=== PATIENT | female | born 1970 | race Caucasian/White ===

== ENCOUNTER 2016-12-29 12:42 | Emergency (ER) | payer OTHER ==
[~2016-12-29] VITALS: Ht 160 cm; Wt 90.0 kg
[~2016-12-29 12:42] MED LIST: ATEN1TAB73 PO; CYAN1000P IM; FOLI1TAB PO; METH500T3 PO; NAPR550 PO; ROSU10 PO; Z.0.BCPILL PO
[2016-12-29 12:44] VITALS: BP 168/90; PULSE 52; RESP 20; TEMP 97.9; O2SAT 100
--- NOTE | 2016-12-29 13:08 | PD ---
HPI Chief Complaint: ENT Complaint Time Seen by Provider: 13:07 Travel History International Travel<30 days: No Contact w/Intl Traveler<30days: No Traveled to known affect area: No History of Present Illness HPI C/O ROOM SPINNING EPISODES OVER PAST 3 DAYS INTERMITTENT, SUDDEN AND MOST SEVERE AT [facility] FOLLOWED BY IMPROVEMENT OVER TIME...WORSENED BY MOVEMENT OF HEAD (TURNING OR UP AND UNDER MOTION) SOME OCCASIONALLY ASSOC N/V, NONE CURRENTLY...PT DENIES BRAVO/CP/ABDPAIN/DIARRHEA/SOB PFSH Past Medical History Cardiovascular Problems: Yes High Cholesterol: Yes ?: Not LMP: 12/28/16 Past Surgical History Tonsillectomy: Yes Social History Alcohol Use: No Tobacco Use: No Substance Use: No Allergies-Medications (Allergen,Severity, Reaction): Coded Allergies: Iodine (Verified Allergy, Severe, RASH, 12/29/16) Reported Meds & Prescriptions Reported Meds & Active Scripts Active Augmentin (Amoxicillin-Clavulanate) 875-125 Mg Tab 1 Tab PO BID Meclizine (Meclizine HCl) 25 Mg Tab 25 Mg PO TID PRN Reported Lisinopril 5 Mg Tab 5 Mg PO DAILY Atenolol 50 Mg Tab 50 Mg PO DAILY Review of Systems Except as stated in HPI: all other systems reviewed are Neg HENT: Positive: Vertigo Physical Exam Narrative GENERAL: SKIN: Warm and dry. HEAD: Atraumatic. Normocephalic. EYES: Pupils equal and round. No scleral icterus. No injection or drainage. FATIGUABLE LATERAL NYSTAGMUS, NO ROTATY OR VERTICAL COMPONENT ENT: No nasal bleeding or discharge. Mucous membranes pink and moist. NECK: Trachea midline. No JVD. CARDIOVASCULAR: Regular rate and rhythm. RESPIRATORY: No accessory muscle use. Clear to auscultation. Breath sounds equal bilaterally. GASTROINTESTINAL: Abdomen soft, non-tender, nondistended. MUSCULOSKELETAL: Extremities without clubbing, cyanosis, or edema. No obvious deformities. NEUROLOGICAL: Awake and alert. No obvious cranial nerve deficits. Motor grossly within normal limits. Five out of 5 muscle strength in the arms and legs. Normal speech. PSYCHIATRIC: Appropriate mood and affect; insight and judgment normal. Data Data Last Documented VS Vital Signs Date Time Temp Pulse Resp B/P Pulse Ox O2 Delivery O2 Flow Rate FiO2 12/29/16 13:12 51 18 126/82 52 20 141/85 62 24 143/84 12/29/16 12:44 97.[address] Brain W/O Iv Contrast(Rout) (12/29/16 13:07) Orthostatic Vital Signs (12/29/16 13:07) Blood Glucose (12/29/16 13:07) Meclizine (Antivert) (12/29/16 14:00) MDM Medical Decision Making Medical Screen Exam Complete: Yes Emergency Medical Condition: Yes Medical Record Reviewed: Yes Differential Diagnosis VERTIGO V ICH V SINUS V DEHYDRATION V HYPOGLYCEMIA Narrative Course ACCUCHECK WNL, GLUCOSE WNL , CT HEAD SHOWED SINUS INFECTION WELL....NL ORTHOSTATIC VITAL SIGNS Diagnosis Primary Impression: Vertigo Additional Impression: SINUSITIS Referrals: Titi Flowers MD FOR FURTHER MANAGEMENT OF YOUR PERIPHERAL VERTIGO Additional Instructions: YOU ARE ADVISED TO NOT DRIVE UNTIL YOU SEE THE ENT DOCTOR Scripts Amoxicillin-Clavulanate (Augmentin)875-125 Mg Tab1 Tab PO BID #20 TAB Prov:Trevor Pang MD 12/29/16 Meclizine 25 Mg Tab25 Mg PO TID PRN (VERTIGO) #21 TAB Ref 0 Prov:Trevor Pang MD 12/29/16 Disposition: 01 DISCHARGE HOME Condition: Stable Trevor Pang MD Dec 29, 2016 13:08
[2016-12-29 13:12] VITALS: BP_SYST 126; BP_SYST 141; BP_SYST 143; BP_DIAS 82; BP_DIAS 84; BP_DIAS 85; RESP 18; RESP 20; RESP 24
[2016-12-29] MEDS ORDERED: ATEN50TA PO (13:19)
[2016-12-29] MEDS ORDERED: LISI-519 PO (13:19)
[2016-12-29] MEDS ORDERED: MECLIZINE HCL 25 MG TAB PO ONE (14:00)
[2016-12-29] MEDS ORDERED: MECL-62 PO (14:14)
--- NOTE | 2016-12-29 14:49 | RADRPT ---
EXAM DATE/TIME: 12/29/2016 14:21 [facility] COMPARISON: No previous studies available for comparison. INDICATIONS : Bilateral ear pain and dizziness RADIATION DOSE: 26.51 CTDIvol (mGy) MEDICAL HISTORY : Cardiovascular disease. Hypertension. SURGICAL HISTORY : None. ENCOUNTER: Initial ACUITY: 1 day PAIN SCALE: 0/10 LOCATION: Bilateral ears. TECHNIQUE: Multiple contiguous axial images were obtained of the head. Using automated exposure control and adj ustment of the mA and/or kV according to patient size, radiation dose was kept as low as reasonably a chievable to obtain optimal diagnostic quality images. DICOM format image data is available electro nically for review and comparison. FINDINGS: CEREBRUM: The ventricles are normal for age. No evidence of midline shift, mass lesion, hemorrhage or acute in farction. No extra-axial fluid collections are seen. POSTERIOR FOSSA: The cerebellum and brainstem are intact. The 4th ventricle is midline. The cerebellopontine angle i s unremarkable. EXTRACRANIAL: Mild polypoid mucosal sinus disease. The visualized portion of the orbits is intact. SKULL: The calvaria is intact. No evidence of skull fracture. CONCLUSION: Mild sinus disease. No acute intracranial findings. Braden Crystal MD on December 29, 2016 at 14:47 Board Certified Radiologist. This report was verified electronically.
[2016-12-29] MEDS ORDERED: AUGM875T3 PO (14:58)
== END 2016-12-29 15:22 | disposition home or self-care (01) ==
LOC: NEPD 12:42
DX: J32.9 Chronic sinusitis, unspecified (principal)
CPT/HCPCS: 70450; 99284

== ENCOUNTER 2017-05-20 19:40 | Emergency (ER) | payer OTHER ==
[~2017-05-20] VITALS: Ht 160 cm; Wt 90.9 kg
[~2017-05-20 19:40] MED LIST changes: -ATEN1TAB73 PO; +ATEN50TA PO; +AUGM875T3 PO; -CYAN1000P IM; -FOLI1TAB PO; +LISI-519 PO; +MECL-62 PO; -METH500T3 PO; -NAPR550 PO; -ROSU10 PO; -Z.0.BCPILL PO
[2017-05-20 19:44] VITALS: BP 174/88; PULSE 67; RESP 16; TEMP 98.7; O2SAT 99
[2017-05-20 20:16] LABS: AUTOMATED NEUTROPHIL # 5.8 TH/MM3 (1.8-7.7); BASOPHIL # 0.1 TH/MM3 (0-0.2); BASOPHIL % 0.8 % (0.0-2.0); EOSINOPHIL # 0.7 TH/MM3 (0-0.4); EOSINOPHIL % 7.3 % (0.0-4.0); HEMATOCRIT 39.7 % (35.0-46.0); HEMOGLOBIN 13.4 GM/DL (11.6-15.3); LYMPH % 27.8 % (9.0-44.0); LYMPHOCYTE # 2.7 TH/MM3 (1.0-4.8); MEAN CORPUSCULAR HEMOGLOBIN 27.5 PG (27.0-34.0); MEAN CORPUSCULAR HGB CONC 33.9 % (32.0-36.0); MEAN PLATELET VOLUME 9.2 FL (7.0-11.0); MONO % 4.4 % (0.0-8.0); MONOCYTE # 0.4 TH/MM3 (0-0.9); NEUT % 59.7 % (16.0-70.0); PLATELET COUNT 309 TH/MM3 (150-450); RED CELL DISTRIBUTION WIDTH 12.9 % (11.6-17.2); WHITE BLOOD COUNT 9.6 TH/MM3 (4.0-11.0)
[2017-05-20 20:27] LABS: ALBUMIN 3.7 GM/DL (3.4-5.0); AST (GOT) 20 U/L (15-37); BICARBONATE 27.7 MEQ/L (21.0-32.0); BLOOD UREA NITROGEN 9 MG/DL (7-18); CALCIUM 8.7 MG/DL (8.5-10.1); CHLORIDE 104 MEQ/L (98-107); CREATININE 0.84 MG/DL (0.50-1.00); GLOMERULAR FILTRATION RATE 73 ML/MIN (>89); GLUCOSE,RANDOM 93 MG/DL (74-106); LIPASE 76 U/L (73-393); SODIUM (NA) 139 MEQ/L (136-145)
[2017-05-20 20:29] LABS: ALT (GPT) 25 U/L (10-53)
[2017-05-20 20:30] LABS: ALKALINE PHOSPHATASE 131 U/L (45-117); TOTAL BILIRUBIN ADULT 0.3 MG/DL (0.2-1.0); TOTAL PROTEIN 7.5 GM/DL (6.4-8.2)
[2017-05-20 20:45] LABS: BILIRUBIN, URINE NEG (NEG); BLOOD, URINE SMALL (NEG); GLUCOSE,URINE NEG (NEG); KETONE, URINE NEG (NEG); MUCUS URINE FEW /lpf (OCC); NITRITE,URINE NEG (NEG); PH, URINE 5.5 (5.0-8.5); SQUAMOUS EPITHELIAL CELL URINE 6 /hpf (0-5); URINE COLOR YELLOW (YELLW/STRAW); URINE LEUKOCYTE ESTERASE NEG (NEG)
[2017-05-20] MEDS ORDERED: KETOROLAC TROMETHAMINE 60 MG/2 ML (IM) VIAL IM ONE (21:30)
--- NOTE | 2017-05-20 22:11 | RADRPT ---
EXAM DATE/TIME: 05/20/2017 21:46 [facility] COMPARISON: No previous studies available for comparison. INDICATIONS : Right flank pain. ORAL CONTRAST: No oral contrast ingested. RADIATION DOSE: 23.11 CTDIvol (mGy) MEDICAL HISTORY : Hypertension. SURGICAL HISTORY : None. ENCOUNTER: Initial ACUITY: 2 days PAIN SCALE: 8/10 LOCATION: Right flank TECHNIQUE: Volumetric scanning of the abdomen and pelvis was performed. Using automated exposure control and ad justment of the mA and/or kV according to patient size, radiation dose was kept as low as reasonably achievable to obtain optimal diagnostic quality images. DICOM format image data is available electro nically for review and comparison. FINDINGS: LOWER LUNGS: The visualized lower lungs are clear. LIVER: Homogeneous density without lesion. There is no dilation of the biliary tree. No calcified gallston es. Subcentimeter low-density. SPLEEN: Normal size without lesion. PANCREAS: Within normal limits. KIDNEYS: Normal in size and shape. There is no mass, stone, or hydronephrosis. ADRENAL GLANDS: Within normal limits. VASCULAR: There is no aortic aneurysm. BOWEL/MESENTERY: The stomach, small bowel, and colon demonstrate no acute abnormality. There is no free intraperitone al air or fluid. Small appendicolith otherwise normal appendix. ABDOMINAL WALL: Within normal limits. Small hiatal hernia. RETROPERITONEUM: There is no lymphadenopathy. BLADDER: No wall thickening or mass. REPRODUCTIVE: Within normal limits. INGUINAL: There is no lymphadenopathy or hernia. MUSCULOSKELETAL: Within normal limits for patient age. CONCLUSION: 1. Small appendicolith but no evidence for appendicitis. 2. No renal calculi or hydronephrosis. 3. No acute inflammatory process. 4. Small hiatal hernia. 5. Subcentimeter hepatic low-density likely benign. Oc Ortiz MD on May 20, 2017 at 22:07 Board Certified Radiologist. This report was verified electronically.
--- NOTE | 2017-05-20 22:29 | RADRPT ---
EXAM DATE/TIME: 05/20/2017 22:13 [facility] COMPARISON: No previous studies available for comparison. INDICATIONS : Right side flank pain. MEDICAL HISTORY : Hypertension. SURGICAL HISTORY : None. ENCOUNTER: Initial ACUITY: 2 days PAIN SCORE: 6/10 LOCATION: Right flank. FINDINGS: A single view of the chest demonstrates the lungs to be symmetrically aerated without evidence of mas s, infiltrate or effusion. The cardiomediastinal contours are unremarkable. Osseous structures are intact. CONCLUSION: No acute disease. Oc Ortiz MD on May 20, 2017 at 22:27 Board Certified Radiologist. This report was verified electronically.
[2017-05-20] MEDS ORDERED: LIDOCAINE VISCOUS 2% SOLN 15 ML UDC SWISH-SWAL ONE (22:30)
[2017-05-20] MEDS ORDERED: ALUMINUM/MAGNESIUM/SIMETH 30 ML CUP PO ONE (22:30)
[2017-05-20 22:46] VITALS: BP 148/80
[2017-05-20] MEDS ORDERED: FAMO1TAB37 PO (22:50)
[2017-05-20] MEDS ORDERED: CARA1TAB6 PO (22:50)
--- NOTE | 2017-05-20 22:50 | PD ---
HPI . Flank/Epigastric pain Chief Complaint: Flank/Kidney Pain Time Seen by Provider: 21:15 Travel History International Travel<30 days: No Contact w/Intl Traveler<30days: No Traveled to known affect area: No History of Present Illness HPI 46-year-old female complains of right flank pain/right upper quadrant pain this evening. Patient has a history of a "lazy" gallbladder. Patient's been on a low-fat diet in the past several years secondary to same, has not been compliant with that low-fat diet during the holidays recently. Patient denies any nausea vomiting diarrhea, denies any chest pain any shortness of breath and has had no change in exercise tolerance of late. Patient denies any sedentary period, confining travel, or leg pain or swelling lately. Denies fever chills sweats. notes a mild cough for the past 10 days that is improving PFSH Past Medical History Narrative Medical Past medical history reviewed Cardiovascular Problems: Yes (HTN, hyperlipidemia) High Cholesterol: Yes Diminished Hearing: No Hypertension: Yes ?: Not Past Surgical History Tonsillectomy: Yes Social History Alcohol Use: No Tobacco Use: No Substance Use: No Allergies-Medications (Allergen,Severity, Reaction): Coded Allergies: iodine (Unverified Allergy, Severe, RASH, 05/20/17) potassium iodide (Unverified Allergy, Severe, RASH, 05/20/17) povidone-iodine (Unverified Allergy, Severe, RASH, 05/20/17) sodium iodide (Unverified Allergy, Severe, RASH, 05/20/17) sodium iodide (Unverified Allergy, Severe, RASH, 05/20/17) Reported Meds & Prescriptions Reported Meds & Active Scripts Active Meclizine (Meclizine HCl) 25 Mg Tab 25 Mg PO TID PRN Reported Lisinopril 5 Mg Tab 5 Mg PO DAILY Atenolol 50 Mg Tab 50 Mg PO DAILY Narrative Medication Allergies and medications reviewed Review of Systems Except as stated in HPI: all other systems reviewed are Neg General / Constitutional: No: Fever Eyes: No: Visual changes HENT: No: Headaches Cardiovascular: Positive: Chest Pain or Discomfort Respiratory: No: Shortness of Breath Gastrointestinal: Positive: Abdominal Pain, No: Nausea, Vomiting, Diarrhea Genitourinary: Positive: Flank Pain, No: Urgency, Frequency, Dysuria, Hematuria , Pelvic Pain Musculoskeletal: No: Pain Skin: No Rash Neurologic: No: Weakness Psychiatric: No: Depression Endocrine: No: Polydipsia Hematologic/Lymphatic: No: Easy Bruising Physical Exam Narrative GENERAL: Awake alert oriented 3 no acute distress SKIN: Warm and dry. Color is normal no diaphoresis cyanosis or pallor HEAD: Atraumatic. Normocephalic. EYES: Pupils equal and round. No scleral icterus. No injection or drainage. ENT: No nasal bleeding or discharge. Mucous membranes pink and moist. NECK: Trachea midline. No JVD. Supple full range of motion CARDIOVASCULAR: Regular rate and rhythm. S1-S2 no murmurs or gallops RESPIRATORY: No accessory muscle use. Clear to auscultation. Breath sounds equal bilaterally. GASTROINTESTINAL: Abdomen soft, mildly tender right upper quadrant with an equivocal Vargas sign, no CVA tenderness nondistended. Hepatic and splenic margins not palpable. MUSCULOSKELETAL: Extremities without clubbing, cyanosis, or edema. No obvious deformities. NEUROLOGICAL: Awake and alert. No obvious cranial nerve deficits. Motor grossly within normal limits. Five out of 5 muscle strength in the arms and legs. Normal speech. PSYCHIATRIC: Appropriate mood and affect; insight and judgment normal. Data Data Last Documented VS Vital Signs Date Time Temp Pulse Resp B/P (MAP) Pulse Ox O2 Delivery O2 Flow Rate FiO2 05/20/17 19:44 98.7 67 16 174/88 (116) 99 Orders Orders Complete Blood Count With Diff (05/20/17 19:49) Comprehensive Metabolic Panel (05/20/17 19:49) Lipase (05/20/17 19:49) Urinalysis - C+S If Indicated (05/20/17 19:49) Chest, Single Ap (05/20/17 ) Ct Abd/Pel W/O Iv Contrast (05/20/17 ) Ketorolac Inj (Toradol Inj) (05/20/17 21:30) Al-Mag Hy-Si 40-40-4 Mg/Ml Liq (Mag-Al P (05/20/17 22:30) Lidocaine 2% Viscous (Xylocaine 2% Visco (05/20/17 22:30) Troponin I (05/20/17 22:18) Labs Laboratory Tests Test 05/20/17 19:55 05/20/17 19:58 Urine Color YELLOW Urine Turbidity CLEAR Urine pH 5.5 Urine Specific [place] 1.017 Urine Protein NEG mg/dL Urine Glucose (UA) NEG mg/dL Urine Ketones NEG mg/dL Urine Occult Blood SMALL Urine Nitrite NEG Urine Bilirubin NEG Urine Urobilinogen LESS THAN 2.0 MG/DL Urine Leukocyte Esterase NEG Urine RBC 3 /hpf Urine WBC 1 /hpf Urine Squamous Epithelial Cells 6 /hpf Urine Mucus FEW /lpf Microscopic Urinalysis Comment CULT NOT INDICATED White Blood Count 9.6 TH/MM3 Red Blood Count 4.90 MIL/MM3 Hemoglobin 13.4 GM/DL Hematocrit 39.7 % Mean Corpuscular Volume 81.0 FL Mean Corpuscular Hemoglobin 27.5 PG Mean Corpuscular Hemoglobin Concent 33.9 % Red Cell Distribution Width 12.9 % Platelet Count 309 TH/MM3 Mean Platelet Volume 9.2 FL Neutrophils (%) (Auto) 59.7 % Lymphocytes (%) (Auto) 27.8 % Monocytes (%) (Auto) 4.4 % Eosinophils (%) (Auto) 7.3 % Basophils (%) (Auto) 0.8 % Neutrophils # (Auto) 5.8 TH/MM3 Lymphocytes # (Auto) 2.7 TH/MM3 Monocytes # (Auto) 0.4 TH/MM3 Eosinophils # (Auto) 0.7 TH/MM3 Basophils # (Auto) 0.1 TH/MM3 CBC Comment DIFF FINAL Differential Comment Blood Urea Nitrogen 9 MG/DL Creatinine 0.84 MG/DL Random Glucose 93 MG/DL Total Protein 7.5 GM/DL Albumin 3.7 GM/DL Calcium Level 8.7 MG/DL Alkaline Phosphatase 131 U/L Aspartate Amino Transf (AST/SGOT) 20 U/L Alanine Aminotransferase (ALT/SGPT) 25 U/L Total Bilirubin 0.3 MG/DL Sodium Level 139 MEQ/L Potassium Level 3.6 MEQ/L Chloride Level 104 MEQ/L Carbon Dioxide Level 27.7 MEQ/L Anion Gap 7 MEQ/L Estimat Glomerular Filtration Rate 73 ML/MIN Troponin I LESS THAN 0.02 NG/ML Lipase 76 U/L [facility] Medical Decision Making Medical Screen Exam Complete: Yes Emergency Medical Condition: Yes Medical Record Reviewed: Yes Differential Diagnosis Epigastric pain, right flank pain, biliary colic Narrative Course Laboratory examinations reviewed, no significant abnormalities. EKG normal sinus rhythm at 69 bpm, nonischemic, intervals otherwise normal Patient improved with Maalox lidocaine orally, Toradol injection IM Diagnosis Primary Impression: Biliary colic Additional Impression: Gastritis Qualified Codes: K29.70 - Gastritis, unspecified, without bleeding Patient Instructions: Biliary Colic (ED), Gastritis (ED), General Instructions Additional Instructions: Low-fat diet as discussed for biliary colic.. Oral calcium antacids as needed. Follow-up with your doctor. Return for worsening Scripts Sucralfate (Carafate) 1 Gram Tab 1 GM PO TID for Ulcer Prevention, #90 TAB 0 Refills On empty stomach Prov: Ugo Melgar MD 05/20/17 Famotidine (Pepcid) 20 Mg Tab 20 MG PO BID, #60 TAB 0 Refills Prov: Ugo Melgar MD 05/20/17 Disposition: 01 DISCHARGE HOME Condition: Stable Ugo Melgar MD May 20, 2017 22:50
--- NOTE | 2017-05-21 09:49 | EKG ---
Date Performed: 05/20/2017 Time Performed: 22:41:34 PTAGE: 46 years EKG: Sinus rhythm LOW QRS VOLTAGE IN PRECORDIAL LEADS POSSIBLE RIGHT VENTRICULAR CONDUCTION DELAY BORDERLINE ECG PREVIOUS TRACING : 05/20/2017 22.40 DOCTOR: Everardo Mathis Interpretating Date/Time 05/21/2017 09:48:18
== END 2017-05-20 23:14 | disposition home or self-care (01) ==
LOC: NEPC 19:40
DX: K80.50 Calculus of bile duct without cholangitis or cholecystitis without obstruction (principal); K29.70 Gastritis, unspecified, without bleeding; I10 Essential (primary) hypertension
CPT/HCPCS: 71045; 74176; 80053; 81001; 83690; 84484; 85025; 93005; 96372; 99285; J1885